=== PATIENT | male | born 1950 | race Caucasian/White ===

== ENCOUNTER → 2016-12-24 08:13 | Outpatient (CLI) | payer MEDICARE, BC ==
--- NOTE | ~2016-12-24 | EMG ---
PATIENT:TRUDI NOLEN DATE OF SERVICE: 12/24/16 MEDICAL RECORD: [id number] DATE OF : 52 LOCATION: [facility] ADMISSION DATE: REFERRING PHYSICIAN: ORLANDO LIAO MD INTERPRETING PHYSICIAN: NAGA CROWDER MD DATE OF SERVICE: 12/24/2016 REFERRED BY: Dr. Liao as an outpatient. ELECTROMYOGRAPHIC DATA: Electromyographic examination is limited to the left upper extremity and is limited to the nerve conduction studies only. This was a technically difficult study. The patient has a great deal of difficulty in tolerating the study and did not complete the nerve conduction studies. He refused the needle electrode examination. In the left upper extremity, left median motor stimulation elicits a compound motor action potential with a distal latency of 4.1 milliseconds, peak amplitude of 4 millivolts, and calculated conduction velocity of 52 meters per second. Left ulnar motor stimulation elicits a compound motor action potential with a distal latency of 3.8 milliseconds, peak amplitude of 5 millivolts, and calculated conduction velocity of 44 meters per second. Left ulnar motor stimulation across the elbow fails to elicit evidence of conduction block at this level. Antidromic left median sensory stimulation elicits a response with a distal latency of 4.5 milliseconds, amplitude of only 1 microvolt and calculated conduction velocity of 56 meters per second. Antidromic left ulnar sensory stimulation elicits a response with a distal latency of 4.6 milliseconds, amplitude of only 2 microvolts and calculated conduction velocity of 40 meters per second. The patient refused to complete the median F wave study. No data is available from that attempt. It is also noted that motor and sensory studies are not that supramaximal stimulation intensities as the patient could not tolerate this study. Needle electrode examination is not performed at this time. INTERPRETATION: Electromyographic examination of the left upper extremity demonstrates mild prolongation of the left median motor distal latency as well as both the left median and ulnar sensory distal latencies. This may be indicative of a median neuropathy, at or distal to the wrist such as carpal tunnel syndrome that is mild in degree as well as a "biker's neuropathy." These changes may also be due to technical factors related to the patient's inability to tolerate the study and supramaximal stimulation. The limitations of the study from a technical standpoint do not allow differentiation between a normal study and mild carpal tunnel and ulnar neuropathies at rest. TRANSINT:[id number] Voice Confirmation ID: [id number] DOCUMENT ID: [id number] ELECTROMYGRAM/NERVE CONDUCTION [id number] TRUDI NOLEN DONALD P MD CC: [id number] DICTATION DATE: 12/24/16912 [employer] SUPERVISOR: 12/24/16 1145 [facility] [address] [facility], [facility]
== END | disposition home or self-care (01) ==
LOC: D.CN 08:13
DX: R20.2 Paresthesia of skin (principal)